=== PATIENT | female | born 1990 | race American Indian/Alaskan Native ===

== ENCOUNTER 2019-09-14 01:13 | Emergency (ER) | payer SELFPAY ==
[2019-09-14 05:36] LABS: BUN/Creatinine Ratio 25; Blood Urea Nitrogen 15 mg/dL (7-17); Calcium 8.9 mg/dL (8.4-10.2); Hemolysis Index 3
[2019-09-14 05:44] LABS: Eosinophils # (Auto) 0.1 K/mm3 (0.0-0.4); Eosinophils % (Auto) 0.9 % (0.0-4.3); Hematocrit 37.3 % (30.3-42.9); Hemoglobin 12.5 gm/dl (10.1-14.3); Lymphocytes # (Auto) 1.9 K/mm3 (1.2-5.4); Lymphocytes % (Auto) 21.7 % (13.4-35.0); Mean Corpuscular HGB Conc 34 % (30-34); Mean Corpuscular Volume 91 fl (79-97); Monocytes # (Auto) 0.4 K/mm3 (0.0-0.8); Monocytes % (Auto) 4.3 % (0.0-7.3); Platelet Count 341 K/mm3 (140-440); Red Blood Count 4.11 M/mm3 (3.65-5.03); Red Cell Distribution Width 13.4 % (13.2-15.2)
[2019-09-14 05:46] LABS: Free T4 (Free Thyroxine) 1.22 ng/dL (0.76-1.46)
[2019-09-14 06:21] VITALS: BP 141/87
[2019-09-14] MEDS ORDERED: NACL 0.9% 1000 ML 1,000 ML IV ONE (06:33)
--- NOTE | 2019-09-14 06:34 | Emergency Department Report ---
ED Palpitations HPI - General Chief Complaint: Anxiety Stated Complaint: TACHYCARDIA Time Seen by Provider: 09/14/19 06:25 Source: patient, EMS Mode of arrival: Stretcher Limitations: No Limitations - History of Present Illness Initial Comments: Patient is a 28-year-old female that presents emergency room with complaints of palpitations, tachycardia, anxiety, shortness of breath. Patient states her shortness of breath has improved. Patient states her anxiety has improved. Patient denies chest pain. Patient states she has a history of tachycardia and has seen a net making supervisor already. Patient states she recently had a Holter monitor which showed bouts of SVT and atrial flutter. Patient states she's hard he tried a beta hermann but had a problem with her heart rate dropping too low. Patient states all results and started during her road trip from [place] to [place]. Patient states when she got the Patience her symptoms started and she called EMS to be brought to the hospital. MD Complaint: rapid heart beat, "heart racing", palpitations -: Sudden Context: occured during rest Arrythmia History: SVT Associated Symptoms: shortness of breath, anxiety. denies: chest pain, syncope, near-syncope, nausea/vomiting, diaphoresis, cough, parasthesias, feeling of impending doom, muscle cramps Treatments Prior to Arrival: other - Related Data Previous Rx's Medication Instructions Recorded Last Taken Type ALPRAZolam [Xanax TAB] 0.25 mg PO BID PRN #6 tab 09/14/19 Unknown Rx Allergies Allergy/AdvReac Type Severity Reaction Status Date / Time general anesthesia AdvReac Unknown Uncoded 09/14/19 01:36 ED Review of Systems ROS: Stated complaint: TACHYCARDIA Other details as noted in HPI Constitutional: denies: chills, fever Eyes: denies: eye pain, eye discharge, vision change ENT: denies: ear pain, throat pain Respiratory: shortness of breath. denies: cough, wheezing Cardiovascular: palpitations. denies: chest pain Endocrine: no symptoms reported Gastrointestinal: denies: abdominal pain, nausea, diarrhea Genitourinary: denies: urgency, dysuria, discharge Musculoskeletal: denies: back pain, joint swelling, arthralgia Skin: denies: rash, lesions Neurological: denies: headache, weakness, paresthesias Psychiatric: anxiety. denies: depression Hematological/Lymphatic: denies: easy bleeding, easy bruising ED Past Medical Hx - Past Medical History Previous Medical History?: Yes Hx Psychiatric Treatment: Yes (anxiety) Additional medical history: tachycardia - Surgical History Past Surgical History?: No - Family History Family history: no significant - Social History Smoking Status: Never Smoker Substance Use Type: None - Medications Home Medications: Home Medications Medication Instructions Recorded Confirmed Last Taken Type ALPRAZolam [Xanax TAB] 0.25 mg PO BID PRN #6 tab 09/14/19 Unknown Rx ED Physical Exam - General Limitations: No Limitations General appearance: alert, in no apparent distress - Head Head exam: Present: atraumatic, normocephalic - Eye Eye exam: Present: normal appearance - ENT ENT exam: Present: mucous membranes moist - Neck Neck exam: Present: normal inspection - Respiratory Respiratory exam: Present: normal lung sounds bilaterally. Absent: respiratory distress, wheezes, rales - Cardiovascular Cardiovascular Exam: Present: regular rate, normal rhythm. Absent: systolic murmur, diastolic murmur, rubs, gallop - GI/Abdominal GI/Abdominal exam: Present: soft, normal bowel sounds. Absent: distended, tenderness, guarding - Rectal Rectal exam: Present: deferred - Extremities Exam Extremities exam: Present: normal inspection - Back Exam Back exam: Present: normal inspection - Neurological Exam Neurological exam: Present: alert, oriented X3 - Psychiatric Psychiatric exam: Present: anxious - Skin Skin exam: Present: warm, dry, intact, normal color. Absent: rash ED Course Vital Signs 09/14/19 09/14/19 09/14/19 01:26 01:27 01:30 Temperature 98.2 F Pulse Rate 128 H 120 H 121 H Respiratory 23 19 20 Rate Blood Pressure 133/77 133/77 O2 Sat by Pulse 99 98 98 Oximetry 09/14/19 09/14/19 09/14/19 01:45 02:00 02:15 Temperature Pulse Rate 108 H 120 H 112 H Respiratory 19 16 17 Rate Blood Pressure 123/78 128/72 124/76 O2 Sat by Pulse 97 99 99 Oximetry 09/14/19 09/14/19 09/14/19 02:30 02:45 03:00 Temperature Pulse Rate 97 H 99 H 95 H Respiratory 20 16 20 Rate Blood Pressure 121/77 115/73 123/69 O2 Sat by Pulse 97 98 98 Oximetry 1009/14/19 09/14/19 03:15 03:30 03:45 Temperature Pulse Rate 93 H 100 H 91 H Respiratory 17 17 17 Rate Blood Pressure 109/60 116/70 136/76 O2 Sat by Pulse 96 96 Oximetry 09/14/19 09/14/19 09/14/19 04:00 04:15 04:30 Temperature Pulse Rate 91 H 84 91 H Respiratory 15 14 16 Rate Blood Pressure 125/66 110/64 107/63 O2 Sat by Pulse 95 94 96 Oximetry 09/14/19 09/14/19 09/14/19 04:45 05:00 05:25 Temperature Pulse Rate 100 H 93 H 83 Respiratory 16 17 Rate Blood Pressure 107/67 119/77 110/64 O2 Sat by Pulse 97 97 Oximetry 09/14/19 09/14/19 09/14/19 05:30 05:45 06:00 Temperature Pulse Rate 90 140 H 114 H Respiratory 18 23 14 Rate Blood Pressure 112/53 112/53 121/75 O2 Sat by Pulse 100 100 99 Oximetry 09/14/19 09/14/19 06:15 06:21 Temperature Pulse Rate 108 H Respiratory 17 18 Rate Blood Pressure 141/87 O2 Sat by Pulse 99 Oximetry - Reevaluation(s) Reevaluation #1: Patient states she's feeling better. Patient's heart rate has improved. Patient's current heart rate is 105. Patient has received 200 mL of normal sali ne. Patient is complaining of slight anxiety. She will be given Ativan. 09/14/19 10:28 Reevaluation #2: Patient states all of her symptoms have resolved. His current heart rate is 90. Patient stable for discharge. I discussed all results with patient. I discussed plan of care with patient. Patient agrees with plan of care. Patient stable for discharge. Patient discharged home. Patient given discharge instructions. Patient voiced understanding of discharge instructions. 09/14/19 11:02 ED Medical Decision Making - Lab Data Result diagrams: 09/14/19 05:06 09/14/19 05:06 - EKG Data -: EKG Interpreted by Me EKG shows normal: sinus rhythm, axis, intervals, QRS complexes, ST-T waves Rate: tachycardia - Radiology Data Radiology results: report reviewed CTA CHEST WITH CONTRAST INDICATION : MAIN: tachycardia. sob. elevated d-dimer 100 NE OMNI 350. TECHNIQUE: Axial imaging performed through the chest, with contrast bolus timing set to maximize opacification of the pulmonary arteries. 3-plane MIP reformatted images were obtained. All CT scans at this location are performed using CT dose reduction for ALARA by means of automated exposure control. 100 mL of intravenous contrast administered. Omnipaque 350 was administered after consent was obtained. COMPARISON: None. FINDINGS: Bolus: Contrast bolus timing is borderline optimal with the pulmonary artery density only slightly greater than the aorta. PTE: No filling defect is present to suggest PTE. Mediastinum: Heart and great vessels appear normal. No pathologic mediastinal adenopathy. Lungs: Lungs are clear. Upper abdomen: Limited imaging of the upper abdomen shows nothing acute. Bones: Degenerative changes in the spine with nothing acute. IMPRESSION: Negative for PTE. Clear lungs. - Medical Decision Making FCO is a 28-year-old female that presents emergency room with complaints of tachycardia, shortness of breath, palpitations and anxiety. Prior to discharge and patient's symptoms completely resolved. Patient found to have sinus tachycardia and given fluids as well as Ativan and her heart rate improved and her symptoms resolved. Patient's labs unremarkable. Patient had elevated d- dimer and patient had a CTA done due to her complaints of shortness of breath tachycardia and elevated d-dimer. CT was negative for PE and acute findings. Patient stable for discharge. Patient discharged home. Patient given discharge instructions. - Differential Diagnosis Anxiety. Shortness of breath. Palpitations. Critical Care Time: Yes Critical care time in (mins) excluding proc time.: 35 Critical care attestation.: If time is entered above; I have spent that time in minutes in the direct care of this critically ill patient, excluding procedure time. Critical Care Time: 35 minutes ED Disposition Clinical Impression: SOB (shortness of breath), Tachycardia, Sinus tachycardia, Panic attack, Elevated d-dimer, Dehydration Disposition: DC-01 TO HOME OR SELFCARE Is pt being admited?: No Does the pt Need Aspirin: No Condition: Stable Instructions: Dehydration (ED), Stress (ED), Generalized Anxiety Disorder (ED), Panic Disorder (ED), Anxiety (ED) Additional Instructions: Patient to follow-up with primary care in 2-3 days. Patient to follow-up with psychiatrist in 2-3 days. Patient to return to ER condition worsens. Patient increase water. Patient to rest. Patient to take meds as directed. Patient to take Tylenol or ibuprofen when necessary for pain. Prescriptions: ALPRAZolam [Xanax TAB] 0.25 mg PO BID PRN #6 tab PRN Reason: Anxiety Referrals: PRIMARY CARE, [Primary Care Provider] - 2-3 Days Time of Disposition: 11:05
[2019-09-14 09:11] LABS: Amphetamine Screen,Urine PRESUMPTIVE NEGATIVE; Benzodiazepines Screen,Urine PRESUMPTIVE NEGATIVE; Cannabinoid Screen,Urine PRESUMPTIVE NEGATIVE; Cocaine Screen,Urine PRESUMPTIVE NEGATIVE; Methadone Screen,Urine PRESUMPTIVE NEGATIVE; Opiate Screen,Urine PRESUMPTIVE NEGATIVE
--- NOTE | 2019-09-14 09:34 | Cat Scan Report ---
CTA CHEST WITH CONTRAST INDICATION : MAIN: tachycardia. sob. elevated d-dimer 100 GA OMNI 350. TECHNIQUE: Axial imaging performed through the chest, with contrast bolus timing set to maximize opa cification of the pulmonary arteries. 3-plane MIP reformatted images were obtained. All CT scans at this location are performed using CT dose reduction for ALARA by means of automated exposure control. 100 mL of intravenous contrast administered. Omnipaque 350 was administered after consent was obtaine d. COMPARISON: None. FINDINGS: Bolus: Contrast bolus timing is borderline optimal with the pulmonary artery density only slightly g reater than the aorta. PTE: No filling defect is present to suggest PTE. Mediastinum: Heart and great vessels appear normal. No pathologic mediastinal adenopathy. Lungs: Lungs are clear. Upper abdomen: Limited imaging of the upper abdomen shows nothing acute. Bones: Degenerative changes in the spine with nothing acute. IMPRESSION: Negative for PTE. Clear lungs. Signer Name: Zhao Arriola MD Signed: 09/14/2019 9:29 AM Workstation Name: [id number]
[2019-09-14] MEDS ORDERED: ATIVAN IV ONE (10:29)
== END 2019-09-14 11:22 | disposition home or self-care (01) ==
LOC: ED 01:13
DX: R00.0 Tachycardia, unspecified (principal); R06.02 Shortness of breath; F41.0 Panic disorder [episodic paroxysmal anxiety]; E86.0 Dehydration; R79.89 Other specified abnormal findings of blood chemistry; Z88.4 Allergy status to anesthetic agent
CPT/HCPCS: 36415; 71275; 80048; 80307; 84439; 84443; 84703; 85025; 85379; 93005; 93010; 96361; 96374; 99285; J2060; J7030; Q9967